=== PATIENT | female | born 1970 | race Caucasian/White ===

== ENCOUNTER 2022-05-07 14:22 | Emergency (ER) | payer MEDICAID ==
[~2022-05-07] VITALS: Ht 160 cm; Wt 58.2 kg
[2022-05-07 15:02] VITALS: BP 128/97
== END 2022-05-07 20:42 | disposition left against medical advice (07) ==
LOC: ER 14:22
DX: K59.00 Constipation, unspecified (principal); Z53.21 Procedure and treatment not carried out due to patient leaving prior to being seen by health care provider